=== PATIENT | male | born 2000 | race Hispanic/Latino ===

== ENCOUNTER 2023-07-27 15:12 | Emergency (ER) | payer OTHER ==
[~2023-07-27] VITALS: Ht 170.2 cm; Wt 96.4 kg
[2023-07-27] MEDS ORDERED: diazePAM 5MG TABLET PO ONE (16:20)
[2023-07-27] MEDS ORDERED: KETOROLAC 30 MG/ML 1ML VIAL IV ONE (16:20)
[2023-07-27] MEDS ORDERED: IBUP-1022 PO (17:57)
[2023-07-27] MEDS ORDERED: METH-1164 PO (17:57)
[2023-07-27 18:26] VITALS: BP 124/75; TEMP 97.7; O2SAT 97
== END 2023-07-27 18:30 | disposition home or self-care (01) ==
LOC: EDBD 15:12 → M ED 15:12
DX: M62.830 Muscle spasm of back (principal)
CPT/HCPCS: 72072; 72110; 96374; 96375; 99284; J1100; J1885

== ENCOUNTER 2024-01-21 22:43 | Emergency (ER) | payer OTHER ==
[~2024-01-21 22:43] MED LIST: IBUP-1022 PO; METH-1164 PO
[2024-01-21] MEDS ORDERED: ISOVUE-370 76% 100ML VIAL As Ordered ONE (23:06)
[2024-01-21 23:09] LABS: BASO % 0.3 % (0.0-1.0); EOS # 0.2 10^3/uL (0.0-0.5); EOS % 2.1 % (0.0-3.0); HEMATOCRIT 42.9 % (42.0-52.0); HEMOGLOBIN 14.1 g/dl (13.5-17.5); LYMPH # 3.6 10^3/uL (1.5-5.0); LYMPH % 38.8 % (24.0-44.0); MEAN CORPUSCULAR HEMOGLOBIN 27.6 pg (27.0-33.0); MEAN CORPUSCULAR HGB CONC 32.9 g/dl (32.0-36.5); MEAN CORPUSCULAR VOLUME 84.1 fl (80.0-96.0); MONO # 0.5 10^3/uL (0.0-0.8); MONO % 5.8 % (2.0-8.0); NEUTROPHILS # 4.9 10^3/uL (1.5-8.5); NEUTROPHILS % 52.5 % (36.0-66.0); PLATELET COUNT, AUTOMATED 225 10^3/uL (150-450); WHITE BLOOD COUNT 9.3 10^3/uL (4.0-10.0)
[2024-01-21 23:10] LABS: ABG BASE EXCESS -3.7 (-2.0-2.0); ABG HCO3 22.5 MMOL/L (22.0-26.0); ABG O2 SATURATION 94.6 % (95.0-99.0); ABG PARTIAL PRESSURE CO2 44.9 mmHg (35.0-45.0); ABG STANDARD HCO3 21.3 MMOL/L. (22.0-26.0); ABG TOTAL CO2 23.8 MMOL/L (22.0-29.0); ABG pH (ARTERIAL) 7.317 UNITS (7.350-7.450)
[2024-01-21] MEDS ORDERED: PROPOFOL 1,000 MG/100 ML VIAL As Ordered ONE (23:12)
[2024-01-21 23:14] LABS: INR 0.99; PARTIAL THROMBOPLASTIN TIME 24.8 SECONDS (24.8-34.2); PROTHROMBIN TIME 12.8 SECONDS (12.5-14.5)
[2024-01-21 23:19] LABS: LIPASE 35 U/L (12-53)
[2024-01-21 23:20] LABS: ETHYL ALCOHOL (ETHANOL) 0.004 % (0.000-0.010)
[2024-01-21 23:21] LABS: ALKALINE PHOSPHATASE 108 U/L (46-116); ALT/SGPT 220 U/L (7.0-40); AMYLASE 51 U/L (30-118); AST/SGOT 134 U/L (<34); BILIRUBIN,DIRECT < 0.1 MG/DL (<0.4); BILIRUBIN,TOTAL 0.3 MG/DL (0.3-1.2); BLOOD UREA NITROGEN 22 MG/DL (9-23); CALCIUM LEVEL 9.4 MG/DL (8.5-10.1); CARBON DIOXIDE LEVEL 25 MMOL/L (20-31); CHLORIDE LEVEL 109 MMOL/L (98-107); CK-MB VALUE MASS 12.4 NG/ML (<3.6); CREATININE FOR GFR 0.97 MG/DL (0.70-1.30); GLOMERULAR FILTRATION RATE > 60.0 (>60); GLUCOSE, FASTING 126 MG/DL (60-100); SODIUM LEVEL 141 MMOL/L (136-145); TOTAL PROTEIN 6.8 G/DL (5.7-8.2)
[2024-01-21 23:22] LABS: APPEARANCE, URINE CLEAR (CLEAR); BACTERIA, URINE AUTO NEGATIVE (NEGATIVE); BILIRUBIN, URINE AUTO NEGATIVE (NEGATIVE); BLOOD, URINE BLOOD NEGATIVE (NEGATIVE); COLOR, URINE YELLOW (YELLOW); GLUCOSE, URINE (UA) AUTO NEGATIVE (NEGATIVE); KETONE, URINE AUTO NEGATIVE (NEGATIVE); LEUKOCYTE ESTERASE, URINE AUTO NEGATIVE (NEGATIVE); MUCUS, URINE SMALL (NEGATIVE); NITRITE, URINE AUTO NEGATIVE (NEGATIVE); PROTEIN, URINE AUTO NEGATIVE (NEGATIVE); RBC, URINE AUTO 0 /HPF (0-3); SPECIFIC GRAVITY URINE AUTO 1.025 (1.002-1.035); SQUAMOUS EPITHELIAL CELL UR AU 0 /HPF (0-6); UROBILINOGEN, URINE AUTO 0.2 mg/dL (0.0-2.0); WBC, URINE AUTO 1 /HPF (0-3)
[2024-01-21 23:35] LABS: CPK CREATINE PHOSPHOKINASE 4254 U/L (46-171); MB/CK RELATIVE INDEX 0.29 (< OR =4)
[2024-01-21 23:45] LABS: AMPHETAMINES LEVEL URINE NEGATIVE (NEGATIVE)
[2024-01-21] MEDS ORDERED: MIDAZOLAM INJ 2MG/2ML VIAL IV STA (23:45)
[2024-01-21 23:46] LABS: BARBITURATES URINE NEGATIVE (NEGATIVE); BENZODIAZEPINES URINE NEGATIVE (NEGATIVE); CANNABINOIDS URINE NEGATIVE (NEGATIVE); COCAINE METABOLITE URINE NEGATIVE (NEGATIVE); METHADONE URINE NEGATIVE (NEGATIVE); OPIATES URINE NEGATIVE (NEGATIVE); PHENCYCLIDINE URINE NEGATIVE (NEGATIVE)
[2024-01-22] MEDS ORDERED: fentaNYL 100 MCG/2 ML INJECTION IV ONE (00:10)
[2024-01-22] MEDS ORDERED: ONDANSETRON 4MG 2ML VIAL As Ordered ONE (00:11)
[2024-01-22] MEDS ORDERED: ONDANSETRON 4MG 2ML VIAL IV ONE (00:15)
[2024-01-22] MEDS ORDERED: ROCURONIUM BROMIDE 50MG/5ML VIAL IV SCH (00:20)
[2024-01-22] MEDS ORDERED: levETIRAcetam INJection 1,500 MG in D5W 100 ML IV ONE (00:20)
[2024-01-22 01:27] VITALS: BP 110/69
[2024-01-22 01:28] VITALS: O2SAT 99
[2024-01-22] MEDS: propofoL 1,000 MG in IV 1 EA IV SCH (02:02)
== END 2024-01-22 01:48 | disposition short-term general hospital (02) ==
LOC: M ED 22:43
DX: S27.322A Contusion of lung, bilateral, initial encounter (principal); J96.90 Respiratory failure, unspecified, unspecified whether with hypoxia or hypercapnia; Y92.9 Unspecified place or not applicable; Y93.9 Activity, unspecified; Y99.9 Unspecified external cause status
CPT/HCPCS: 36600; 70450; 71045; 71260; 72125; 72128; 72131; 73564; 73590; 74177; 80047; 80048; 80076; 80307; 81001; 82077; 82150; 82550; 82553; 82803; 83605; 83690; 84484; 85025; 85610; 85730; 86850; 86900; 86901; 93005; 96365; 96366; 99285; J3010; Q9967

== ENCOUNTER 2025-04-08 07:32 | Emergency (ER) | payer OTHER ==
[~2025-04-08] VITALS: Ht 170.2 cm; Wt 101.0 kg
[~2025-04-08 07:32] MED LIST changes: -IBUP-1022 PO; +IBUP600T42 PO
[2025-04-08 07:36] VITALS: BP 121/76; TEMP 97.1; O2SAT 98
[2025-04-08] MEDS ORDERED: IBUP-1764 PO (07:46)
== END 2025-04-08 08:40 | disposition left against medical advice (07) ==
LOC: M ED 07:32
DX: Z53.21 Procedure and treatment not carried out due to patient leaving prior to being seen by health care provider (principal)